=== PATIENT | male | born 1960 | race Caucasian/White ===

== ENCOUNTER 2020-04-03 16:27 | Emergency (ER) | payer MEDICAID, OTHER ==
[~2020-04-03] VITALS: Ht 182.9 cm; Wt 91.3 kg
[~2020-04-03 16:27] MED LIST: ACET-2119 PO; IBUP-1984 PO; TRAM50TA2 PO
[2020-04-03 19:32] VITALS: BP 127/92
--- NOTE | 2020-04-03 19:49 | NUR ---
vascular at bedside
[2020-04-03] MEDS ORDERED: CEPH250T PO (21:04)
== END 2020-04-03 21:23 | disposition home or self-care (01) ==
LOC: ER 16:27
DX: S80.12XA Contusion of left lower leg, initial encounter (principal); S80.812A Abrasion, left lower leg, initial encounter; L03.116 Cellulitis of left lower limb; Z79.2 Long term (current) use of antibiotics; W18.39XA Other fall on same level, initial encounter; Y93.89 Activity, other specified; Y92.89 Other specified places as the place of occurrence of the external cause; Y99.8 Other external cause status
CPT/HCPCS: 93971; 99284